=== PATIENT | male | born 1960 | race Caucasian/White ===

== ENCOUNTER 2017-01-10 08:15 | Outpatient (CLI) | payer OTHER ==
[2017-01-10 12:54] LABS: HEMOGLOBIN A1C 0.57 g/dL
[2017-01-10 13:03] LABS: BASOPHILS # (AUTO) 0.1 10^3/uL (0.0-0.1); EOSINOPHILS # (AUTO) 0.1 10^3/uL (0.0-0.7); EOSINOPHILS % (AUTO) 2.8 %; HCT - HEMATOCRIT 40.7 % (42.0-52.0); HGB - HEMOGLOBIN 13.7 g/dL (14.0-18.0); LYMPHOCYTES # (AUTO) 1.3 10^3/uL (1.5-3.5); LYMPHOCYTES % (AUTO) 25.5 %; MEAN CORPUSCULAR HEMOGLOBIN 32.3 pg (27.0-31.0); MEAN CORPUSCULAR HGB CONC 33.7 g/dL (32.0-36.0); MEAN CORPUSCULAR VOLUME 95.8 fL (80.0-94.0); MEAN PLATELET VOLUME 9.1 fL (7.4-11.4); MONOCYTES # (AUTO) 0.6 10^3/uL (0.0-1.0); MONOCYTES % (AUTO) 11.2 %; NEUTROPHILS # (AUTO) 3.1 10^3/uL (1.5-6.6); NEUTROPHILS % (AUTO) 59.5 %; NUCLEATED RED BLOOD CELLS AUTO 0.2 /100WBC; RED BLOOD COUNT 4.24 10^6/uL (4.70-6.10); RED CELL DISTRIBUTION WIDTH 13.1 % (12.0-15.0); UNCORRECTED WHITE BLOOD COUNT 5.2 x10^3/uL; WHITE BLOOD COUNT 5.2 x10^3/uL (4.8-10.8)
[2017-01-10 13:17] LABS: ALBUMIN/GLOBULIN RATIO 1.6 (1.0-2.2); BILIRUBIN,TOTAL 0.3 mg/dL (0.2-1.0); BUN - BLOOD UREA NITROGEN 16 mg/dL (6-20); CARBON DIOXIDE - CO2 31 mmol/L (21-32); CHLORIDE 102 mmol/L (101-111); CHOL/HDL RATIO 3.2 (<5.0); CHOLESTEROL 161 mg/dL; CREATININE 0.7 mg/dL (0.6-1.2); GFR - MDRD 117 (>89); GLUCOSE 109 mg/dL (70-100); HDL CHOLESTEROL 50 mg/dL; LDL/HDL RATIO 1.9 (<3.6); POTASSIUM 4.4 mmol/L (3.5-5.0); SODIUM 139 mmol/L (135-145); TOTAL PROTEIN 6.7 g/dL (6.7-8.2); TRIGLYCERIDES 79 mg/dL; VLDL CHOLESTEROL 16 mg/dL
== END 2017-01-10 08:16 | disposition home or self-care (01) ==
LOC: LAB.WCP 08:15
PROVIDERS: ATTEND Physician Assistant Medical
DX: Z00.00 Encounter for general adult medical examination without abnormal findings (principal)
CPT/HCPCS: 36415; 80053; 80061; 83036; 84153; 84443; 85025

== ENCOUNTER 2017-01-17 16:15 | Outpatient (CLI) | payer OTHER | END 2017-01-17 16:16 | LOC: LAB.R 16:15 | PROVIDERS: ATTEND Physician Assistant Medical | DX: H60.90 Unspecified otitis externa, unspecified ear (principal) | CPT/HCPCS: 87070; 87077 ==

== ENCOUNTER 2017-02-05 07:12 | Outpatient (CLI) | payer OTHER ==
--- NOTE | 2017-02-06 09:06 | CT Report ---
CT CHEST FOR LUNG CANCER SCREENIN02/05/2017 CLINICAL INDICATION: Tobacco use, 56-year-old current smoker with 33-oano-paap history of smoking. TECHNIQUE: Axial CT images of the chest were obtained without intravenous contrast, using low-dose s creening technique. No previous CT is available for comparison. FINDINGS: The heart and great vessels are unremarkable. No hilar or mediastinal lymphadenopathy is present. The lungs demonstrate emphysema. No pulmonary nodule or mass lesion is present. No effusi on or pneumothorax is seen. Osseous structures demonstrate degenerative changes. Limited evaluation of upper abdominal structures demonstrates normal adrenal glands. IMPRESSION: EMPHYSEMA. NO SUSPICIOUS PULMONARY NODULE OR MASS LESION. RECOMMENDATION: Continue annual screening with low-dose CT in 12 months. LUNG-RADS CATEGORY 1 - NEGATIVE. JOB #: [id number] EXT JOB #:[id number]
== END 2017-02-05 07:13 | disposition home or self-care (01) ==
LOC: DI 07:12
PROVIDERS: ATTEND Physician Assistant Medical
DX: Z12.2 Encounter for screening for malignant neoplasm of respiratory organs (principal); J43.9 Emphysema, unspecified; F17.210 Nicotine dependence, cigarettes, uncomplicated

== ENCOUNTER 2017-02-27 09:12 | Outpatient (CLI) | payer OTHER ==
[~2017-02-27 09:12] MED LIST: ALBUTEROL NEB 2.5 MG/3 ML INH SCH
== END 2017-02-27 09:13 | disposition home or self-care (01) ==
LOC: RT 09:12
PROVIDERS: ATTEND Physician Assistant Medical
DX: J44.9 Chronic obstructive pulmonary disease, unspecified (principal)
CPT/HCPCS: 94010; J7613

== ENCOUNTER 2017-04-09 07:07 | Day surgery (SDC) | payer OTHER ==
[2017-04-09] MEDS ORDERED: LACTATED RINGERS 1,000 ML IV ONE (07:26)
[2017-04-09] MEDS ORDERED: MIDAZOLAM 2 MG/2 ML VIAL IVP ONE (08:49)
[2017-04-09] MEDS ORDERED: fentaNYL 100 MCG/2 ML VIAL IVP ONE (08:49)
[2017-04-09 10:02] VITALS: BP 107/60
== END 2017-04-09 07:08 | disposition home or self-care (01) ==
LOC: SDS 07:07
PROVIDERS: ATTEND Surgery
PROC: 0DBK8ZX Excision of Ascending Colon, Via Natural or Artificial Opening Endoscopic, Diagnostic (ICD-10-PCS; 2017-04-09)
PROC: 0DBK8ZX Excision of Ascending Colon, Via Natural or Artificial Opening Endoscopic, Diagnostic (ICD-10-PCS; principal; 2017-04-09 08:15)
DX: D12.2 Benign neoplasm of ascending colon (principal); K64.8 Other hemorrhoids; E11.9 Type 2 diabetes mellitus without complications; I10 Essential (primary) hypertension; E03.9 Hypothyroidism, unspecified; E78.00 Pure hypercholesterolemia, unspecified; J43.9 Emphysema, unspecified; Z79.82 Long term (current) use of aspirin; Z87.891 Personal history of nicotine dependence
CPT/HCPCS: 45380; 45385; J7120

== ENCOUNTER 2018-01-15 07:04 | Outpatient (CLI) | payer OTHER ==
[2018-01-15 13:24] LABS: BASOPHILS % (AUTO) 0.4 %; EOSINOPHILS # (AUTO) 0.3 10^3/uL (0.0-0.7); EOSINOPHILS % (AUTO) 5.1 %; HGB - HEMOGLOBIN 13.8 g/dL (14.0-18.0); LYMPHOCYTES # (AUTO) 1.5 10^3/uL (1.5-3.5); LYMPHOCYTES % (AUTO) 28.9 %; MEAN CORPUSCULAR HEMOGLOBIN 31.6 pg (27.0-31.0); MEAN CORPUSCULAR HGB CONC 32.9 g/dL (32.0-36.0); MEAN CORPUSCULAR VOLUME 96.1 fL (80.0-94.0); MEAN PLATELET VOLUME 8.9 fL (7.4-11.4); MONOCYTES # (AUTO) 0.6 10^3/uL (0.0-1.0); MONOCYTES % (AUTO) 11.3 %; NEUTROPHILS # (AUTO) 2.8 10^3/uL (1.5-6.6); NEUTROPHILS % (AUTO) 54.3 %; PLT - PLATELET COUNT 255 10^3/uL (130-450); RED BLOOD COUNT 4.37 10^6/uL (4.70-6.10); RED CELL DISTRIBUTION WIDTH 13.2 % (12.0-15.0); WHITE BLOOD COUNT 5.1 x10^3/uL (4.8-10.8)
[2018-01-15 13:38] LABS: HEMOGLOBIN A1C 0.57 g/dL; HEMOGLOBIN A1C % 5.6 % (4.6-6.2)
[2018-01-15 14:34] LABS: ALBUMIN 3.8 g/dL (3.2-5.5); ALBUMIN/GLOBULIN RATIO 1.2 (1.0-2.2); ALKALINE PHOSPHATASE 35 IU/L (42-121); ALT ALANINE AMINOTRANSFERASE 22 IU/L (10-60); AST ASPARTATE AMINOTRANSFERASE 23 IU/L (10-42); BILIRUBIN,TOTAL 0.4 mg/dL (0.2-1.0); BUN - BLOOD UREA NITROGEN 18 mg/dL (6-20); CALCIUM 8.9 mg/dL (8.5-10.3); CARBON DIOXIDE - CO2 28 mmol/L (21-32); CHLORIDE 104 mmol/L (101-111); CHOL/HDL RATIO 2.6 (<5.0); CHOLESTEROL 155 mg/dL; GFR - MDRD 77 (>89); GLUCOSE 118 mg/dL (70-100); HDL CHOLESTEROL 59 mg/dL; LDL CHOLESTEROL,CALCULATED 82 mg/dL; LDL/HDL RATIO 1.4 (<3.6); SODIUM 138 mmol/L (135-145); TOTAL PROTEIN 6.9 g/dL (6.7-8.2); VLDL CHOLESTEROL 14 mg/dL
== END 2018-01-15 07:05 | disposition home or self-care (01) ==
LOC: LAB.WCP 07:04
PROVIDERS: ATTEND Family Medicine
DX: E11.9 Type 2 diabetes mellitus without complications (principal); I10 Essential (primary) hypertension; E03.9 Hypothyroidism, unspecified; E78.2 Mixed hyperlipidemia
CPT/HCPCS: 36415; 80053; 80061; 83036; 83721; 84443; 85025

== ENCOUNTER 2018-11-26 08:00 | Outpatient (CLI) | payer OTHER | END 2018-11-26 23:59 | disposition home or self-care (01) | LOC: LAB.R 08:00 | PROVIDERS: ATTEND Physician Assistant Medical | DX: H60.90 Unspecified otitis externa, unspecified ear (principal) | CPT/HCPCS: 87070; 87181; 87205 ==

== ENCOUNTER 2019-03-12 12:17 | Outpatient (CLI) | payer OTHER ==
[2019-03-12 13:06] LABS: BASOPHILS % (AUTO) 0.8 %; EOSINOPHILS # (AUTO) 0.3 10^3/uL (0.0-0.7); EOSINOPHILS % (AUTO) 4.9 %; HGB - HEMOGLOBIN 13.3 g/dL (14.0-18.0); LYMPHOCYTES # (AUTO) 1.6 10^3/uL (1.5-3.5); LYMPHOCYTES % (AUTO) 30.9 %; MEAN CORPUSCULAR HEMOGLOBIN 31.4 pg (27.0-31.0); MEAN CORPUSCULAR HGB CONC 32.1 g/dL (32.0-36.0); MEAN CORPUSCULAR VOLUME 97.9 fL (80.0-94.0); MEAN PLATELET VOLUME 10.2 fL (7.4-11.4); MONOCYTES # (AUTO) 0.6 10^3/uL (0.0-1.0); MONOCYTES % (AUTO) 11.5 %; NEUTROPHILS # (AUTO) 2.6 10^3/uL (1.5-6.6); NEUTROPHILS % (AUTO) 51.7 %; PLT - PLATELET COUNT 272 10^3/uL (130-450); RED BLOOD COUNT 4.23 10^6/uL (4.70-6.10); RED CELL DISTRIBUTION WIDTH 13.1 % (12.0-15.0); WHITE BLOOD COUNT 5.1 x10^3/uL (4.8-10.8)
[2019-03-12 13:20] LABS: ALBUMIN 4.3 g/dL (3.2-5.5); ALBUMIN/GLOBULIN RATIO 1.5 (1.0-2.2); ALKALINE PHOSPHATASE 35 IU/L (42-121); ALT ALANINE AMINOTRANSFERASE 23 IU/L (10-60); AST ASPARTATE AMINOTRANSFERASE 26 IU/L (10-42); BILIRUBIN,TOTAL 0.8 mg/dL (0.2-1.0); BUN - BLOOD UREA NITROGEN 18 mg/dL (6-20); CALCIUM 9.5 mg/dL (8.5-10.3); CARBON DIOXIDE - CO2 30 mmol/L (21-32); CHLORIDE 101 mmol/L (101-111); CHOL/HDL RATIO 2.9 (<5.0); CHOLESTEROL 191 mg/dL; GFR - MDRD 77 (>89); GLUCOSE 111 mg/dL (70-100); HDL CHOLESTEROL 65 mg/dL; LDL CHOLESTEROL,CALCULATED 100 mg/dL; LDL/HDL RATIO 1.5 (<3.6); SODIUM 139 mmol/L (135-145); TOTAL PROTEIN 7.1 g/dL (6.7-8.2); VLDL CHOLESTEROL 26 mg/dL
[2019-03-12 13:48] LABS: HB2 TOTAL 13.5 g/dL; HEMOGLOBIN A1C 0.56 g/dL; HEMOGLOBIN A1C % 5.9 % (4.6-6.2)
[2019-03-12 14:21] LABS: FREE T4 (FREE THYROXINE) 1.63 ng/dL (0.58-1.64)
== END 2019-03-12 23:59 | disposition home or self-care (01) ==
LOC: LAB.WCP 12:17
PROVIDERS: ATTEND Physician Assistant Medical
DX: Z00.00 Encounter for general adult medical examination without abnormal findings (principal); R73.09 Other abnormal glucose; E03.9 Hypothyroidism, unspecified; Z12.5 Encounter for screening for malignant neoplasm of prostate
CPT/HCPCS: 36415; 80053; 80061; 83036; 83721; 84153; 84439; 84443; 85025

== ENCOUNTER 2019-06-10 08:00 | Outpatient (CLI) | payer OTHER ==
[2019-06-10 13:15] LABS: BASOPHILS # (AUTO) 0.1 10^3/uL (0.0-0.1); EOSINOPHILS # (AUTO) 0.2 10^3/uL (0.0-0.7); EOSINOPHILS % (AUTO) 3.6 %; HGB - HEMOGLOBIN 13.4 g/dL (14.0-18.0); LYMPHOCYTES # (AUTO) 1.4 10^3/uL (1.5-3.5); LYMPHOCYTES % (AUTO) 27.1 %; MEAN CORPUSCULAR HEMOGLOBIN 31.5 pg (27.0-31.0); MEAN CORPUSCULAR HGB CONC 32.1 g/dL (32.0-36.0); MEAN CORPUSCULAR VOLUME 98.1 fL (80.0-94.0); MEAN PLATELET VOLUME 10.4 fL (7.4-11.4); MONOCYTES # (AUTO) 0.7 10^3/uL (0.0-1.0); MONOCYTES % (AUTO) 12.4 %; NEUTROPHILS # (AUTO) 2.9 10^3/uL (1.5-6.6); NEUTROPHILS % (AUTO) 55.3 %; PLT - PLATELET COUNT 275 10^3/uL (130-450); RED BLOOD COUNT 4.25 10^6/uL (4.70-6.10); RED CELL DISTRIBUTION WIDTH 12.8 % (12.0-15.0); WHITE BLOOD COUNT 5.2 x10^3/uL (4.8-10.8)
[2019-06-10 13:50] LABS: % IRON SATURATION 33 % (20-50); IRON 147 ug/dL (45-182); TOTAL IRON BINDING CAPACITY 447 ug/dL (250-450); TRANSFERRIN 319 mg/dL (180-329)
[2019-06-10 13:57] LABS: FOLATE 20.94 ng/mL (5.90 - >24.8)
[2019-06-10 15:53] LABS: FREE T4 (FREE THYROXINE) 1.2 ng/dL (0.58-1.64)
== END 2019-06-10 23:59 | disposition home or self-care (01) ==
LOC: LAB.WCP 08:00
PROVIDERS: ATTEND Physician Assistant Medical
DX: D64.9 Anemia, unspecified (principal); E03.9 Hypothyroidism, unspecified
CPT/HCPCS: 36415; 82607; 82728; 82746; 83540; 84439; 84443; 84466; 85025

== ENCOUNTER 2020-08-11 08:00 | Outpatient (CLI) | payer OTHER ==
[2020-08-11 14:05] LABS: BUN - BLOOD UREA NITROGEN 17 mg/dL (6-20); CALCIUM 9.9 mg/dL (8.5-10.3); CARBON DIOXIDE - CO2 27 mmol/L (21-32); CHLORIDE 94 mmol/L (101-111); CHOL/HDL RATIO 4.2 (<5.0); CHOLESTEROL 279 mg/dL; GLUCOSE 105 mg/dL (70-100); HDL CHOLESTEROL 66 mg/dL; LDL CHOLESTEROL,CALCULATED 174 mg/dL; LDL/HDL RATIO 2.6 (<3.6); VLDL CHOLESTEROL 39 mg/dL
== END 2020-08-11 23:59 | disposition home or self-care (01) ==
LOC: LAB.WCP 08:00
PROVIDERS: ATTEND Physician Assistant Medical
DX: E78.2 Mixed hyperlipidemia (principal); I10 Essential (primary) hypertension; Z12.5 Encounter for screening for malignant neoplasm of prostate; E03.9 Hypothyroidism, unspecified
CPT/HCPCS: 36415; 80048; 80061; 83721; 84153; 84443

== ENCOUNTER 2020-09-05 07:10 | Outpatient (CLI) | payer OTHER ==
--- NOTE | 2020-09-05 08:52 | Ultrasound Report ---
PROCEDURE: Aorta Screening INDICATIONS: TOBACCO USE TECHNIQUE: Real time scanning was performed of the aorta and iliac arteries, with image documentatio n. COMPARISON: None FINDINGS: Aorta: Proximal aortic diameter measures 2.7 cm. Mid-aorta measures 2.0 cm. Distal aortic diameter is 1.8 cm. Iliac arteries: Right common iliac artery measures 1.2 cm. Left common iliac artery measures 1.2 cm . IMPRESSION: No evidence of aneurysm. Reviewed by: Kush Dahl MD on 09/05/2020 7:51 AM [facility] Approved by: Kush Dahl MD on 09/05/2020 7:51 AM [facility] Station ID: [id number]
== END 2020-09-05 07:11 | disposition home or self-care (01) ==
LOC: DI 07:10
PROVIDERS: ATTEND Physician Assistant Medical
DX: Z13.6 Encounter for screening for cardiovascular disorders (principal); F17.200 Nicotine dependence, unspecified, uncomplicated

== ENCOUNTER 2020-09-12 09:54 | Outpatient (CLI) | payer OTHER ==
--- NOTE | 2020-09-12 12:04 | CT Report ---
PROCEDURE: Low Dose Lung Cancer Screen INDICATIONS: TOBACCO USE TECHNIQUE: Noncontrast low-dose 5 mm thick sections acquired from the pulmonary apices to the posterior costophr enic angles. 7 mm thick coronal and sagittal MIP reformats were then acquired. For radiation dose r eduction, the following was used: automated exposure control, adjustment of mA and/or kV according t o patient size. COMPARISON: None. FINDINGS: Image quality: Excellent. Lungs and pleura: No suspicious pulmonary nodules. No significant emphysematous change identified. I ncidental note made of pneumatocele in the left lower lobe. Mediastinum: Heart size is normal. No pericardial effusion. No mediastinal adenopathy by size crit eria. Thoracic aorta and central pulmonary arteries are normal in size. Esophagus is normal in shaun renetta. No hiatal hernia. Bones and chest wall: No suspicious bony lesions. No vertebral body compression fractures. No axil rigo or supraclavicular adenopathy by size criteria. The thyroid is normal in size. Abdomen: Visualized upper abdomen solid organs and bowel loops appear normal in the absence of contr ast. IMPRESSION: 1. LungRads category 1: Negative. No nodules and/or definitely benign nodules. 2. Annual low-dose noncontrast CT of the chest is recommended for lung cancer screening. Reviewed by: Vishal Marte MD on 09/12/2020 11:02 AM [facility] Approved by: Vishal Marte MD on 09/12/2020 11:02 AM [facility] Station ID: [id number]
== END 2020-09-12 09:55 | disposition home or self-care (01) ==
LOC: DI 09:54
PROVIDERS: ATTEND Physician Assistant Medical
DX: Z12.2 Encounter for screening for malignant neoplasm of respiratory organs (principal); F17.210 Nicotine dependence, cigarettes, uncomplicated

== ENCOUNTER 2020-11-19 06:17 | Outpatient (CLI) | payer OTHER ==
[2020-11-19 06:51] LABS: ALBUMIN 4.5 g/dL (3.2-5.5); ALBUMIN/GLOBULIN RATIO 1.7 (1.0-2.2); ALKALINE PHOSPHATASE 35 IU/L (42-121); ALT ALANINE AMINOTRANSFERASE 23 IU/L (10-60); AST ASPARTATE AMINOTRANSFERASE 23 IU/L (10-42); BILIRUBIN,TOTAL 0.9 mg/dL (0.2-1.0); BUN - BLOOD UREA NITROGEN 21 mg/dL (6-20); CALCIUM 9.2 mg/dL (8.5-10.3); CARBON DIOXIDE - CO2 27 mmol/L (21-32); CHLORIDE 101 mmol/L (101-111); CHOL/HDL RATIO 2.9 (<5.0); CHOLESTEROL 227 mg/dL; CREATININE 0.9 mg/dL (0.6-1.2); GFR - MDRD 86 (>89); GLUCOSE 114 mg/dL (70-100); HDL CHOLESTEROL 77 mg/dL; LDL CHOLESTEROL,CALCULATED 133 mg/dL; LDL/HDL RATIO 1.7 (<3.6); POTASSIUM 4.4 mmol/L (3.5-5.0); SODIUM 137 mmol/L (135-145); TOTAL PROTEIN 7.2 g/dL (6.7-8.2); TRIGLYCERIDES 84 mg/dL; VLDL CHOLESTEROL 17 mg/dL
== END 2020-11-19 06:18 | disposition home or self-care (01) ==
LOC: LAB 06:17
PROVIDERS: ATTEND Physician Assistant Medical
DX: E78.2 Mixed hyperlipidemia (principal)
CPT/HCPCS: 36415; 80053; 80061; 83721

== ENCOUNTER 2021-07-20 06:39 | Outpatient (CLI) | payer OTHER ==
[2021-07-20 06:56] LABS: BASOPHILS # (AUTO) 0.1 10^3/uL (0.0-0.1); BASOPHILS % (AUTO) 1.2 %; EOSINOPHILS # (AUTO) 0.4 10^3/uL (0.0-0.7); EOSINOPHILS % (AUTO) 6.7 %; HCT - HEMATOCRIT 41.1 % (42.0-52.0); HGB - HEMOGLOBIN 14.2 g/dL (14.0-18.0); LYMPHOCYTES % (AUTO) 35.2 %; MEAN CORPUSCULAR HEMOGLOBIN 33.6 pg (27.0-31.0); MEAN CORPUSCULAR HGB CONC 34.5 g/dL (32.0-36.0); MEAN CORPUSCULAR VOLUME 97.2 fL (80.0-94.0); MEAN PLATELET VOLUME 9.5 fL (7.4-11.4); MONOCYTES # (AUTO) 0.7 10^3/uL (0.0-1.0); MONOCYTES % (AUTO) 11.4 %; NEUTROPHILS # (AUTO) 2.6 10^3/uL (1.5-6.6); NEUTROPHILS % (AUTO) 45.2 %; PLT - PLATELET COUNT 260 10^3/uL (130-450); RED BLOOD COUNT 4.23 10^6/uL (4.70-6.10); RED CELL DISTRIBUTION WIDTH 12.4 % (12.0-15.0); WHITE BLOOD COUNT 5.8 x10^3/uL (4.8-10.8)
[2021-07-20 07:18] LABS: ALBUMIN 4.4 g/dL (3.2-5.5); ALBUMIN/GLOBULIN RATIO 1.6 (1.0-2.2); ALKALINE PHOSPHATASE 33 IU/L (42-121); ALT ALANINE AMINOTRANSFERASE 21 IU/L (10-60); AST ASPARTATE AMINOTRANSFERASE 23 IU/L (10-42); BILIRUBIN,TOTAL 0.7 mg/dL (0.2-1.0); BUN - BLOOD UREA NITROGEN 18 mg/dL (6-20); CALCIUM 9.3 mg/dL (8.5-10.3); CARBON DIOXIDE - CO2 29 mmol/L (21-32); CHLORIDE 100 mmol/L (101-111); CHOL/HDL RATIO 3.2 (<5.0); CHOLESTEROL 239 mg/dL; CREATININE 1.1 mg/dL (0.6-1.2); GFR - MDRD 68 (>89); GLUCOSE 114 mg/dL (70-100); HDL CHOLESTEROL 74 mg/dL; LDL CHOLESTEROL,CALCULATED 148 mg/dL; POTASSIUM 4.4 mmol/L (3.5-5.0); SODIUM 139 mmol/L (135-145); TOTAL PROTEIN 7.2 g/dL (6.7-8.2); TRIGLYCERIDES 87 mg/dL; VLDL CHOLESTEROL 17 mg/dL
[2021-07-20 07:26] LABS: THYROID STIMULATING HORMONE 0.9 uIU/mL (0.34-5.60)
== END 2021-07-20 06:40 | disposition home or self-care (01) ==
LOC: LAB 06:39
PROVIDERS: ATTEND Physician Assistant Medical
DX: R73.03 Prediabetes (principal); E78.2 Mixed hyperlipidemia; E03.9 Hypothyroidism, unspecified; D64.9 Anemia, unspecified
CPT/HCPCS: 36415; 80053; 80061; 83721; 84443; 85025

== ENCOUNTER 2022-01-16 06:11 | Outpatient (CLI) | payer OTHER ==
[2022-01-16 06:45] LABS: ALBUMIN 4.5 g/dL (3.2-5.5); ALBUMIN/GLOBULIN RATIO 1.6 (1.0-2.2); ALKALINE PHOSPHATASE 34 IU/L (42-121); ALT ALANINE AMINOTRANSFERASE 19 IU/L (10-60); AST ASPARTATE AMINOTRANSFERASE 23 IU/L (10-42); BILIRUBIN,TOTAL 0.7 mg/dL (0.2-1.0); BUN - BLOOD UREA NITROGEN 21 mg/dL (6-20); CALCIUM 9.4 mg/dL (8.5-10.3); CARBON DIOXIDE - CO2 30 mmol/L (21-32); CHLORIDE 97 mmol/L (101-111); CHOL/HDL RATIO 2.8 (<5.0); CHOLESTEROL 255 mg/dL; GFR - MDRD 76 (>89); GLUCOSE 112 mg/dL (70-100); HDL CHOLESTEROL 90 mg/dL; LDL CHOLESTEROL,CALCULATED 147 mg/dL; LDL/HDL RATIO 1.6 (<3.6); POTASSIUM 4.9 mmol/L (3.5-5.0); SODIUM 135 mmol/L (135-145); TOTAL PROTEIN 7.4 g/dL (6.7-8.2); TRIGLYCERIDES 88 mg/dL; VLDL CHOLESTEROL 18 mg/dL
== END 2022-01-16 06:12 | disposition home or self-care (01) ==
LOC: LAB 06:11
PROVIDERS: ATTEND Physician Assistant Medical
DX: E78.2 Mixed hyperlipidemia (principal); Z12.5 Encounter for screening for malignant neoplasm of prostate
CPT/HCPCS: 36415; 80053; 80061; 83721; 84153

== ENCOUNTER 2022-06-28 11:42 | Day surgery (SDC) | payer OTHER ==
[2022-06-28] MEDS ORDERED: LACTATED RINGERS 1,000 ML IV ONE ×2 (11:46→14:23)
[2022-06-28] MEDS ORDERED: MIDAZOLAM 2 MG/2 ML VIAL ONE ×2 (12:41→13:10)
[2022-06-28] MEDS ORDERED: PROPOFOL 500 MG/50 ML 500 MG/50 ML VIAL ONE (12:48)
--- NOTE | 2022-06-28 12:56 | ANESTHESIA ---
Pre-Anesthesia VS, & Labs - Diagnosis screening exam, history of polypectomy - Procedure colonoscopy Vital Signs: Temp Pulse Resp BP Pulse Ox O2 Flow Rate 37.1 C 56 L 11 L 159/74 H 95 06/28/22 11:46 06/28/22 11:46 06/28/22 11:46 06/28/22 11:46 06/28/22 11:46 Height: 5 ft 8 in Weight (kg): 77 kg Body Mass Index: 25.8 BMI Classification: Overweight - NPO >8 hours Home Medications and Allergies Levothyroxine [Synthroid] 25 mcg PO QDAC 07/17/13 Simvastatin 10 mg PO DAILY 07/17/13 lisinopriL [Lisinopril] 10 tab PO DAILY 04/06/17 Allergies/Adverse Reactions: Allergies Allergy/AdvReac Type Severity Reaction Status Date / Time acetaminophen [From NyQuil] AdvReac Rash Verified 06/28/22 12:23 dextromethorphan AdvReac Rash Verified 06/28/22 12:23 [From NyQuil] doxylamine [From NyQuil] AdvReac Rash Verified 06/28/22 12:23 latex AdvReac Rash Verified 06/28/22 12:23 Latex, Natural Rubber AdvReac Rash Verified 06/28/22 12:23 pseudoephedrine [From NyQuil] AdvReac Rash Verified 06/28/22 12:23 cologne AdvReac Rash Uncoded 06/28/22 12:23 Anes History & Medical History - Anesthetic History Anesthesia Complications: reports: No previous complications - Medical History Cardiovascular: reports: Hypertension, High cholesterol Pulmonary: reports: None Gastrointestinal: reports: Colon polyps Urinary: reports: None Neuro: reports: Seizure disorder (epilespy last seizure in high school.) Musculoskeletal: reports: None Endocrine/Autoimmune: reports: HyPOthyroidism Blood Disorders: reports: None Skin: reports: None Smoking Status: Current every day smoker (vapes daily for 40 years) Psychosocial: reports: Alcohol (daily beer 6 pack.), Cannabis (daily use.) History of Cancer?: No - Surgical History General: reports: Colonoscopy, Other Eyes Ears Nose Throat (EENT): reports: Tonsil/Adenoidectomy Orthopedic: reports: Spine surgery Exam General: Alert, Oriented x3, Cooperative, No acute distress Dental: WNL Mouth Openin Fingerbreadth Neck Mobility: Normal Mallampati classification: II Thyromental Distance: 4-6 cm Mental/Cognitive Status: Alert/Oriented X3, Normal for patient Plan Anesthesia Type: General, Total IV Consent for Procedure(s) Verified and Reviewed: Yes Code Status: Attempt Resuscitation ASA classification: 2-Mild systemic disease Is this case an emergency?: No
[2022-06-28] MEDS ORDERED: GLYCOPYRROLATE 1 MG/5 ML VIAL ONE (13:52)
[2022-06-28] MEDS ORDERED: PROPOFOL 200 MG/20 ML VIAL IVP ONE (14:14)
--- NOTE | 2022-06-28 15:00 | ANESTHESIA POST OP EVALUATION ---
Anesthesia Post Eval - Post Anesthesia Eval Vitals: Last Vital Signs Temp 36.6 C 06/28/22 14:45 Pulse 60 06/28/22 14:45 Resp 16 06/28/22 14:45 BP 153/73 H 06/28/22 14:45 Pulse Ox 100 06/28/22 14:45 O2 Flow Rate CV Function Including HR & BP: Stable Pain Control: Satisfactory Nausea & Vomiting: Negative Mental Status: Baseline Respiratory Status: Airway Patent Hydration Status: Satisfactory Anesthesia Complications: None
[2022-06-28 15:08] VITALS: BP 150/72
== END 2022-06-28 11:43 | disposition home or self-care (01) ==
LOC: SDS 11:42
PROVIDERS: ATTEND Surgery
PROC: 0DBL8ZX Excision of Transverse Colon, Via Natural or Artificial Opening Endoscopic, Diagnostic (ICD-10-PCS; principal; 2022-06-28 12:45)
DX: K63.5 Polyp of colon (principal); Z12.11 Encounter for screening for malignant neoplasm of colon; K64.8 Other hemorrhoids; J44.9 Chronic obstructive pulmonary disease, unspecified; F17.290 Nicotine dependence, other tobacco product, uncomplicated
CPT/HCPCS: 45380; J7120

== ENCOUNTER 2023-02-25 06:36 | Outpatient (CLI) | payer OTHER ==
[2023-02-25 07:23] LABS: ALBUMIN 4.5 g/dL (3.2-5.5); ALBUMIN/GLOBULIN RATIO 1.7 (1.0-2.2); ALKALINE PHOSPHATASE 36 IU/L (42-121); ALT ALANINE AMINOTRANSFERASE 15 IU/L (10-60); AST ASPARTATE AMINOTRANSFERASE 19 IU/L (10-42); BILIRUBIN,TOTAL 0.6 mg/dL (0.2-1.0); BUN - BLOOD UREA NITROGEN 17 mg/dL (6-20); CALCIUM 9.8 mg/dL (8.5-10.3); CARBON DIOXIDE - CO2 30 mmol/L (21-32); CHLORIDE 101 mmol/L (101-111); CHOL/HDL RATIO 2.8 (<5.0); CHOLESTEROL 218 mg/dL; GFR - MDRD 76 (>89); GLUCOSE 103 mg/dL (74-104); HDL CHOLESTEROL 79 mg/dL; LDL CHOLESTEROL,CALCULATED 112 mg/dL; LDL/HDL RATIO 1.4 (<3.6); POTASSIUM 4.6 mmol/L (3.5-4.5); SODIUM 136 mmol/L (135-145); TOTAL PROTEIN 7.1 g/dL (6.4-8.9); TRIGLYCERIDES 136 mg/dL (48-352); VLDL CHOLESTEROL 27 mg/dL
[2023-02-25 07:31] LABS: BASOPHILS # (AUTO) 0.1 10^3/uL (0.0-0.1); BASOPHILS % (AUTO) 1.1 %; EOSINOPHILS # (AUTO) 0.3 10^3/uL (0.0-0.7); EOSINOPHILS % (AUTO) 5.6 %; HCT - HEMATOCRIT 43.3 % (42.0-52.0); HGB - HEMOGLOBIN 14.3 g/dL (14.0-18.0); LYMPHOCYTES # (AUTO) 1.4 10^3/uL (1.5-3.5); LYMPHOCYTES % (AUTO) 23.9 %; MEAN CORPUSCULAR HEMOGLOBIN 32.7 pg (27.0-31.0); MEAN CORPUSCULAR VOLUME 99.1 fL (80.0-94.0); MEAN PLATELET VOLUME 9.4 fL (7.4-11.4); MONOCYTES # (AUTO) 0.8 10^3/uL (0.0-1.0); MONOCYTES % (AUTO) 14.4 %; NEUTROPHILS # (AUTO) 3.1 10^3/uL (1.5-6.6); NEUTROPHILS % (AUTO) 54.5 %; PLT - PLATELET COUNT 250 10^3/uL (130-450); RED BLOOD COUNT 4.37 10^6/uL (4.70-6.10); RED CELL DISTRIBUTION WIDTH 12.3 % (12.0-15.0); WHITE BLOOD COUNT 5.7 x10^3/uL (4.8-10.8)
== END 2023-02-25 06:37 | disposition home or self-care (01) ==
LOC: LAB 06:36
PROVIDERS: ATTEND Physician Assistant Medical
DX: I10 Essential (primary) hypertension (principal); E78.2 Mixed hyperlipidemia; Z12.11 Encounter for screening for malignant neoplasm of colon; E03.9 Hypothyroidism, unspecified
CPT/HCPCS: 36415; 80053; 80061; 83721; 84153; 84439; 84443; 85025

== ENCOUNTER 2023-03-23 07:54 | Outpatient (CLI) | payer OTHER ==
--- NOTE | 2023-03-23 14:03 | CT Report ---
PROCEDURE: Low Dose Lung Cancer Screen INDICATIONS: SCREENING FOR LUNG CA TECHNIQUE: A CT scan of the chest was performed. Intravenous contrast media was not administered. Images were re corded and evaluated at appropriate window settings. Reformats: axial MIP of the chest, coronal and s agittal. For radiation dose reduction, the following was used: automated exposure control, adjustment of mA and/or kV according to patient size. COMPARISON: CT 02/19/2022 FINDINGS: Image quality: Excellent. Prior cancer history: Unsure. Lungs and pleura: No pleural effusions. No pneumothorax. 2 mm solid nodule, left lung apex (series 3 , image 39). Mediastinum: Heart size is normal. No pericardial effusion. No large vessel abnormality. No mediastin al adenopathy by size criteria. Two vessel coronary artery calcifications. Chest wall and lower neck: Thyroid is unremarkable. No axillary or supraclavicular adenopathy by size . Bones: No aggressive osseous abnormality. Upper Abdomen: Subcentimeter hypoattenuating lesion in segment 2 of the liver, too small to character ize by CT but probably a small cyst. IMPRESSION: Lung RAD: 2 - Benign. Recommendation: Continue annual screening in 12 Months with LDCT Non-Lung Significant Findings: Coronary Arterial Calcification - Moderate or Severe. Consider cardiol ogy referral. Reviewed by: Roly Tijerina on 03/23/2023 2:02 PM PDT Approved by: Roly Tijerina on 03/23/2023 2:02 PM PDT Station ID: [id number]
== END 2023-03-23 07:55 | disposition home or self-care (01) ==
LOC: DI 07:54
PROVIDERS: ATTEND Physician Assistant Medical
DX: Z12.2 Encounter for screening for malignant neoplasm of respiratory organs (principal); I25.10 Atherosclerotic heart disease of native coronary artery without angina pectoris